=== PATIENT | female | born 2000 ===

== ENCOUNTER 2024-04-21 13:07 | Emergency (ER) | payer MEDICAID ==
[~2024-04-21] VITALS: Ht 157.5 cm; Wt 56.0 kg
[2024-04-21 13:10] VITALS: BP 121/61; PULSE 79; RESP 18; TEMP 97.8; O2SAT 100
[2024-04-21 13:47] LABS: BILIRUBIN,URINE NEGATIVE (Neg); CLARITY,URINE CLOUDY (Clear); COLOR,URINE YELLOW (Yellow); GLUCOSE, URINE NEGATIVE (Neg); KETONES,URINE NEGATIVE (Neg); LEUKOCYTE ESTERASE ,URINE SMALL (Neg); NITRITES, URINE NEGATIVE (Neg); OCCULT BLOOD,URINE NEGATIVE (Neg); PH,URINE 6.5 (4.8-8.0); PROTEIN,URINE NEGATIVE (Neg); UROBILINOGEN,URINE 0.2 E.U/dL (0.2-1.0)
[2024-04-21 13:51] LABS: UA COLLECTION TYPE CLN CATCH MIDSTREAM
[2024-04-21 13:57] LABS: MUCUS STRANDS FEW /LPF (Neg)
[2024-04-21 13:58] LABS: BACTERIA,URINE 4+ /HPF (Neg); RBC,URINE 0-2 /HPF (0-2)
[2024-04-21 13:59] LABS: SQUAMOUS EPITHELIAL CELL,UR MANY /LPF (FEW); WBC,URINE 20-30 /HPF (0-4)
[2024-04-21] MEDS ORDERED: METR-349 PO (15:39)
[2024-04-21] MEDS ORDERED: metroNIDAZOLE 500mg tablet PO SCH ×2 (21:00)
== END 2024-04-21 15:04 | disposition home or self-care (01) ==
LOC: ER 13:08
DX: O98.811 Other maternal infectious and parasitic diseases complicating pregnancy, first trimester (principal); Z3A.12 12 weeks gestation of pregnancy; N76.0 Acute vaginitis; B96.89 Other specified bacterial agents as the cause of diseases classified elsewhere; Z88.2 Allergy status to sulfonamides
CPT/HCPCS: 36415; 81001; 84702; 99283